=== PATIENT | male | born 1980 | race Caucasian/White ===

== ENCOUNTER 2019-11-20 08:34 | Emergency (ER) | payer MEDICAID ==
[~2019-11-20] VITALS: Ht 172.7 cm; Wt 71.8 kg
[2019-11-20 08:40] VITALS: BP 117/82
[2019-11-20] MEDS ORDERED: LIDOcaine 1% W/epiNEPHrine 1:200,000 10ml vial IJ ONE (09:15)
[2019-11-20] MEDS ORDERED: DOXY-11 PO (09:17)
== END 2019-11-20 09:49 | disposition home or self-care (01) ==
LOC: ER 08:35
DX: L02.11 Cutaneous abscess of neck (principal); M54.2 Cervicalgia; R22.1 Localized swelling, mass and lump, neck; Z59.0 Homelessness; Z88.2 Allergy status to sulfonamides
CPT/HCPCS: 10060; 87070; 87077; 87186; 99283

== ENCOUNTER 2019-11-22 19:35 | Emergency (ER) | payer MEDICAID ==
[~2019-11-22] VITALS: Ht 172.7 cm; Wt 71.8 kg
[~2019-11-22 19:35] MED LIST: DOXY-11 PO
[2019-11-22 19:37] VITALS: BP 148/92
--- NOTE | 2019-11-22 20:45 | NUR ---
pt is 39 yo male c/o abscess to posterior neck, was I&D'd "but it is getting bigger", pt has been compliant with taking antibiotic as prescribed
[2019-11-22] MEDS ORDERED: clindamycin 150mg capsule PO ONE (21:20)
[2019-11-22] MEDS ORDERED: CLIN150C2 PO (21:20)
== END 2019-11-22 21:43 | disposition home or self-care (01) ==
LOC: ER 19:35
DX: L02.11 Cutaneous abscess of neck (principal); Z59.0 Homelessness; Z88.2 Allergy status to sulfonamides; Z79.2 Long term (current) use of antibiotics
CPT/HCPCS: 10060; 99284